=== PATIENT | female | born 1995 | race Caucasian/White ===

== ENCOUNTER 2017-07-08 18:18 | Emergency (ER) | payer OTHER ==
[2017-07-08 19:40] LABS: BASOPHIL % 0.5 % (0-2); PLATELET COUNT 242 x10^3mcL (130-400); RED CELL DISTRIBUTION WIDTH 13.8 % (11.5-14.5)
[2017-07-08 19:44] LABS: CALCIUM 8.9 mg/dL (8.5-10.1); CARBON DIOXIDE 29.7 mmol/L (21-32); CHLORIDE SERUM 103 mmol/L (98-107); CREATININE SERUM 0.6 mg/dL (0.6-1.0); GFR1 > 60 mL/min; GLUCOSE SERUM 86 mg/dL (74-106); POTASSIUM SERUM 3.6 mmol/L (3.5-5.1); SODIUM SERUM 139 mmol/L (136-145)
[2017-07-08 19:48] LABS: ALBUMIN 3.7 g/dL (3.4-5.0); ALKALINE PHOSPHATASE 68 U/L (46-116); ALT/SGPT 30 U/L (14-59); AST/SGOT 14 U/L (15-37); BILIRUBIN TOTAL 0.2 mg/dL (0.20-1.00)
[2017-07-08 19:56] LABS: TOTAL PROTEIN, SERUM 8.4 g/dL (6.4-8.2)
[2017-07-08 22:24] VITALS: BP 112/69
== END 2017-07-08 22:24 | disposition home or self-care (01) ==
LOC: ED 18:18
PROVIDERS: Emergency Medicine
DX: R51 Headache (principal); R42 Dizziness and giddiness; F41.9 Anxiety disorder, unspecified; Z90.49 Acquired absence of other specified parts of digestive tract

== ENCOUNTER 2017-12-11 02:09 | Emergency (ER) | payer OTHER ==
[~2017-12-11] VITALS: Ht 167.6 cm; Wt 101.6 kg
[2017-12-11 02:23] VITALS: Ht 167.6 cm; Wt 101.6 kg
[2017-12-11 06:19] VITALS: BP 105/55
== END 2017-12-11 07:00 | disposition home or self-care (01) ==
LOC: ED 02:09
DX: S00.83XA Contusion of other part of head, initial encounter (principal); V43.92XA Unspecified car occupant injured in collision with other type car in traffic accident, initial encounter; Y93.89 Activity, other specified; Y92.89 Other specified places as the place of occurrence of the external cause; Y99.8 Other external cause status
CPT/HCPCS: J1885

== ENCOUNTER 2019-11-23 23:23 | Emergency (ER) | payer BC, OTHER ==
[~2019-11-23] VITALS: Ht 167.6 cm; Wt 90.7 kg
[2019-11-23 23:27] VITALS: Ht 167.6 cm; Wt 90.7 kg
[2019-11-23 23:55] LABS: BASOPHIL % 0.7 % (0-2); PLATELET COUNT 261 x10^3mcL (130-400); RED CELL DISTRIBUTION WIDTH 14.5 % (11.5-14.5)
[2019-11-24 00:11] LABS: CALCIUM 9.1 mg/dL (8.5-10.1); CARBON DIOXIDE 26.5 mmol/L (21-32); CHLORIDE SERUM 104 mmol/L (98-107); CREATININE SERUM 0.7 mg/dL (0.6-1.0); GFR1 > 60 mL/min; GLUCOSE SERUM 96 mg/dL (74-106); POTASSIUM SERUM 3.7 mmol/L (3.5-5.1); SODIUM SERUM 139 mmol/L (136-145)
[2019-11-24 00:24] LABS: ALBUMIN 3.6 g/dL (3.4-5.0); ALKALINE PHOSPHATASE 68 U/L (46-116); ALT/SGPT 27 U/L (14-59); AST/SGOT 15 U/L (15-37); BILIRUBIN TOTAL 0.2 mg/dL (0.20-1.00); T4(THYROXINE) 6.8 ug/dL (4.7-13.3); TOTAL PROTEIN, SERUM 7.9 g/dL (6.4-8.2)
[2019-11-24 01:06] VITALS: BP 110/56
== END 2019-11-24 01:06 | disposition home or self-care (01) ==
LOC: ED 23:23
PROVIDERS: Emergency Medicine
DX: R09.1 Pleurisy (principal); F41.9 Anxiety disorder, unspecified
CPT/HCPCS: 36415; J1885

== ENCOUNTER 2020-06-09 22:17 | Emergency (ER) | payer OTHER ==
[~2020-06-09] VITALS: Ht 172.7 cm; Wt 116.6 kg
[2020-06-09 22:21] VITALS: Ht 172.7 cm; Wt 116.6 kg
[2020-06-10 00:25] VITALS: BP 153/92
== END 2020-06-09 23:40 | disposition home or self-care (01) ==
LOC: ED 22:17
DX: S69.81XA Other specified injuries of right wrist, hand and finger(s), initial encounter (principal); Z90.89 Acquired absence of other organs; W86.0XXA Exposure to domestic wiring and appliances, initial encounter; Y93.89 Activity, other specified; Y92.89 Other specified places as the place of occurrence of the external cause; Y99.8 Other external cause status

== ENCOUNTER 2020-09-01 23:22 | Emergency (ER) | payer OTHER ==
[~2020-09-01] VITALS: Ht 170.2 cm; Wt 116.6 kg
[2020-09-01 23:42] VITALS: BP 133/70; Ht 170.2 cm; Wt 116.6 kg
[2020-09-02 02:05] LABS: CARBON DIOXIDE 24.1 mmol/L (21-32); CHLORIDE SERUM 102 mmol/L (98-107); CREATININE SERUM 0.7 mg/dL (0.6-1.0); GFR1 > 60 mL/min; GLUCOSE SERUM 98 mg/dL (74-106); POTASSIUM SERUM 3.9 mmol/L (3.5-5.1); SODIUM SERUM 137 mmol/L (136-145)
[2020-09-02 02:06] LABS: BASOPHIL % 0.4 % (0.2-1.3); PLATELET COUNT 271 x10^3mcL (179-408); RED CELL DISTRIBUTION WIDTH 14.2 % (12.3-17.7)
== END 2020-09-02 03:05 | disposition home or self-care (01) ==
LOC: ED 23:22
PROVIDERS: Emergency Medicine
DX: T19.0XXA Foreign body in urethra, initial encounter (principal); Z90.89 Acquired absence of other organs; W45.8XXA Other foreign body or object entering through skin, initial encounter; Y93.89 Activity, other specified; Y92.89 Other specified places as the place of occurrence of the external cause; Y99.8 Other external cause status
CPT/HCPCS: J1885; J7030

== ENCOUNTER 2020-11-08 09:56 | Emergency (ER) | payer OTHER ==
[~2020-11-08] VITALS: Ht 170.2 cm; Wt 116.6 kg
[2020-11-08 10:05] VITALS: Ht 170.2 cm; Wt 116.6 kg
[2020-11-08] MEDS ORDERED: ULTRAM50 MG PO (11:13)
[2020-11-08] MEDS ORDERED: IBU600 M2 PO (11:13)
[2020-11-08 11:50] VITALS: BP 141/91
== END 2020-11-08 11:45 | disposition home or self-care (01) ==
LOC: ED 09:56
DX: S30.1XXA Contusion of abdominal wall, initial encounter (principal); S20.211A Contusion of right front wall of thorax, initial encounter; F41.9 Anxiety disorder, unspecified; Z90.89 Acquired absence of other organs; V47.6XXA Car passenger injured in collision with fixed or stationary object in traffic accident, initial encounter; Y93.89 Activity, other specified; Y92.488 Other paved roadways as the place of occurrence of the external cause; Y99.8 Other external cause status
CPT/HCPCS: Q0162